=== PATIENT | female | born 1970 | race Hispanic/Latino ===

== ENCOUNTER → 2020-08-21 | Outpatient (CLI) | payer BC, MEDICARE ==
[~2020-08-21] MED LIST: AMLO-257 PO; ATOR20TA65 PO; CARV25TA PO; FOLI0.8T2 PO; FURO20TA4 PO; INSU100I24 SQ; LOSA50TA64 PO; SEVELAMER CARBONATE PO
== END | disposition home or self-care (01) ==
LOC: SHCH 15:02
PROVIDERS: ATTEND Internal Medicine Cardiovascular Disease
DX: I08.8 Other rheumatic multiple valve diseases (principal); I42.9 Cardiomyopathy, unspecified; E66.9 Obesity, unspecified; E78.5 Hyperlipidemia, unspecified; E11.9 Type 2 diabetes mellitus without complications
CPT/HCPCS: 93306; 93356

== ENCOUNTER → 2020-10-18 | Outpatient (CLI) | payer BC, MEDICARE | END | disposition home or self-care (01) | LOC: SHCH 08:28 | PROVIDERS: ATTEND Internal Medicine Cardiovascular Disease | DX: I70.213 Atherosclerosis of native arteries of extremities with intermittent claudication, bilateral legs (principal) | CPT/HCPCS: 93925 ==

== ENCOUNTER → 2020-10-27 | Outpatient (CLI) | payer BC, MEDICARE ==
[~2020-10-27] VITALS: Ht 154.9 cm; Wt 77.1 kg
[~2020-10-27] MED LIST changes: +REGADENOSON 0.4 MG/5 ML PF SYG IVP SCH
== END | disposition home or self-care (01) ==
LOC: SHCH 10-20 07:47
PROVIDERS: ATTEND Internal Medicine Cardiovascular Disease
DX: I25.10 Atherosclerotic heart disease of native coronary artery without angina pectoris (principal)
CPT/HCPCS: 78452; 93017; 96374; A9500 ×2